=== PATIENT | male | born 1960 | race African-American/Black ===

== ENCOUNTER 2017-11-14 01:23 | Inpatient (IN) | payer OTHER ==
[2017-11-14 02:00] VITALS: BMI 27.1
--- NOTE | 2017-11-14 02:34 | PDOC ---
History of Present Illness - History of Present Illness Initial Comments: 11/14/17 02:52 Nikolai Mistry is a 56yo man with a PMH of head/neck cancer, currently undergoing radiation treatment, chronic respiratory failure s/p trach, dysarthria, dysphagia, chronic anemia, HTN who [facility]. Mr Mistry reports that he was sleeping when his nose bleed started. He has had frequent nose bleeds about once per month since starting radiation therapy, but they usually stop on their own. He was previously seen in another hospital ED for a nosebleed, but he says that time the blood was also coming from his mouth and required intervention. He denies any use of blood thinners and has not had any other unusual bleeding - he denies any hematuria, melena or hematochezia, hemoptysis, or unusual bruising. He gets all of his nutrition via G-tube and says that he has not had any difficulty taking in a normal amount recently. He has not had any changes in his diet, and has not had any recent diarrhea or change in bowel habits. <Kari Mullins - Last Filed: 11/14/17 06:50> <Marley Martinez - Last Filed: 11/14/17 06:59> - General Chief Complaint: Nasal Bleeding Stated Complaint: EPISTAXIS Time Seen by Provider: 11/14/17 02:29 Past History - Past Medical History Anemia: Yes Cancer: Yes COPD: No HTN: Yes Other medical history: chronic resp failure, Acute Kidney Failure, Dysarthria, Dysphagia, Dysphoni - Suicide/Smoking/Psychosocial Hx Smoking History: Unknown if ever smoked Hx Alcohol Use: No Drug/Substance Use Hx: No <Kari Mullins - Last Filed: 11/14/17 06:50> <Marley Martinez - Last Filed: 11/14/17 06:59> - Past Medical History Allergies/Adverse Reactions: Allergies Allergy/AdvReac Type Severity Reaction Status Date / Time No Known Allergies Allergy Verified 11/14/17 02:58 Home Medications: Ambulatory Orders Albuterol 2.5/Ipratropium 0.5 [Duoneb -] 1 amp NEB QID 11/14/17 Amlodipine Besylate [Norvasc -] 10 mg GT DAILY 11/14/17 Fluticasone Propionate 9.9 ml NS DAILY 11/14/17 Gabapentin 300 mg GT TID 11/14/17 Magnesium Oxide 400 mg GT DAILY 11/14/17 Review of Systems - Review of Systems Comments:: General: No fevers, no chills, no weight or appetite change, no malaise HEENT: No changes in vision, no changes in hearing. +h/o CA, +frequent nosebleeds, +radiation therapy to head and neck CV: No chest pain, no palpitations, no LE edema Pulm: h/o chronic respiratory failure s/p trach. No recent breathing difficulty GI: No nausea or vomiting, no change in bowel habits, no melena, no hematochezia : No frequency, no urgency, no dysuria, no hematuria Musc: No back pain, no joint swelling, no recent injury Skin: No rash, no lesions, no erythema Endo: No excessive thirst, no heat/cold intolerance Heme: No unusual bruising, no swollen glands Neuro: No syncope, no numbness/tingling, no focal weakness Vasc: No claudication Psych: No recent change in mood, no SI or HI <Kari Mullins - Last Filed: 11/14/17 06:50> *Physical Exam - Vital Signs Last Vital Signs Temp Pulse Resp BP Pulse Ox 98.9 F 119 H 19 123/95 99 11/14/17 01:30 11/14/17 01:30 11/14/17 01:30 11/14/17 01:30 11/14/17 01:30 - Physical Exam Comments: General: Comfortable, no acute distress HEENT: PERRL, EOMI, MMM. Dried blood noted in b/l nares and beneath nose, no active bleeding. Trach in place. Cards: RRR, no murmur appreciated Pulm: Comfortable on room air, clear to auscultation bilaterally Abd: Soft, nontender, nondistended. G-tube in place. Ext: Atraumatic. No LE edema. ROM intact. Strength 5/5 and equal bilaterally Vasc: Extremities WWP. Palpable radial and pedal pulses bilaterally Neuro: A&Ox3, CN grossly intact, normal speech, motor/sensory grossly intact and symmetric <Kari Mullins - Last Filed: 11/14/17 06:50> - Vital Signs Last Vital Signs Temp Pulse Resp BP Pulse Ox 98.9 F 119 H 19 123/95 99 11/14/17 01:30 11/14/17 01:30 11/14/17 01:30 11/14/17 01:30 11/14/17 01:30 <Marley Martinez - Last Filed: 11/14/17 06:59> ED Treatment Course - LABORATORY CBC & Chemistry Diagram: 11/14/17 03:48 11/14/17 03:48 <Kari Mullins - Last Filed: 11/14/17 06:50> - LABORATORY CBC & Chemistry Diagram: 11/14/17 03:48 11/14/17 03:48 - ADDITIONAL ORDERS Additional order review: Laboratory Results 11/14/17 11/14/17 11/14/17 06:23 06:06 03:48 PT with INR INR PTT (Actin FS) Sodium 139 Potassium 5.0 Chloride 105 Carbon Dioxide 28 Anion Gap 6 L BUN 30 H Creatinine 1.4 H Creat Clearance w eGFR 52.24 Random Glucose 121 H Calcium 8.9 Total Bilirubin 0.4 AST 25 ALT 28 Alkaline Phosphatase 98 Total Protein 7.8 Albumin 2.6 L Blood Type O POSITIVE O POSITIVE Antibody Screen Negative Crossmatch See Detail 11/14/17 03:48 PT with INR 13.30 H INR 1.18 H PTT (Actin FS) 32.8 Sodium Potassium Chloride Carbon Dioxide Anion Gap BUN Creatinine Creat Clearance w eGFR Random Glucose Calcium Total Bilirubin AST ALT Alkaline Phosphatase Total Protein Albumin Blood Type Antibody Screen Crossmatch 11/14/17 03:48 RBC 3.42 L MCV 77.0 L MCHC 32.9 RDW 16.8 H MPV 9.3 - RADIOLOGY Radiology Studies Ordered: Category Date Time Status CHEST X-RAY PORTABLE* [RAD] Stat Radiology 11/14/17 05:57 Ordered - Medications Given in the ED: ED Medications Discontinued Medications Generic Name Dose Route Start Last Admin Trade Name Freq PRN Reason Stop Dose Admin Sodium Chloride 1,000 ml 11/14/17 02:50 11/14/17 04:24 Normal Saline - IV 11/14/17 02:51 1,000 ml ONCE ONE Administration <Marley Martinez - Last Filed: 11/14/17 06:59> Medical Decision Making - Medical Decision Making 11/14/17 02:56 Nikolai Mistry is a 56yo man with a PMH of head/neck cancer, chronic respiratory failure s/p trach, HTN, chronic anemia who presents from a [facility] with epistaxis. The bleeding had resolved while waiting to be seen. - No current bleeding, so no action required for epistaxis - Tachycardic to 119 on arrival. Will give 1L bolus NS and recheck vitals - CBC, CMP, coags ordered to evaluate cause of bleeding; no labs available for baseline. - Per patient, no current use of anticoagulants. 11/14/17 06:13 - At approximately 05:00, Mr Mistry began experiencing profuse bleeding from the nose and mouth consistent with a posterior epistaxis. RhinoRocket packing was placed in the bilateral nares with continued intermittent bleeding via the mouth - Mr Mistry became hypotensive to SBP 83 and tachycardic to 120. 2u RBC's were ordered by emergency release for acute blood loss anemia as well as 1L normal saline - A triple lumen catheter was placed in the right femoral vein by Dr Martinez - ENT was paged for continued posterior bleeding - Medicine was contacted for ICU admission 11/14/17 06:52 - Discussed with ENT. Mr Mistry receives his cancer treatments at [facility]. ENT recommended transfer to an academic center where he receives his care as the bleeding could be related to his tumor. - Plan for transfer to [facility] Seen and discussed with Dr Martinez. <Kari Mullins - Last Filed: 11/14/17 06:50> *DC/Admit/Observation/Transfer - Discharge Dispostion Decision to Admit order: Yes <Kari Mullins - Last Filed: 11/14/17 06:50> - Discharge Dispostion Decision to Admit order: No - Transfer to Acute Care Facility Receiving [facility]: [facility]. <Marley Martinez - Last Filed: 11/14/17 06:59> Diagnosis at time of Disposition: Frequent epistaxis, Acute posterior epistaxis, Acute on chronic blood loss anemia - Discharge Dispostion Disposition: TRANSFER ACUTE CARE/OTHER HOSP Condition at time of disposition: Critical - Referrals Referrals: Jorge Luis Lomas MD [Primary Care Provider] - - Patient Instructions Printed Discharge Instructions: Nosebleeds (Alternative Therapy), DI for Nosebleed - Post Discharge Activity
--- NOTE | 2017-11-14 02:44 | PDOC ---
Attending Attestation - Resident Resident Name: SusannaKari - ED Attending Attestation I have performed the following: I have examined & evaluated the patient, The case was reviewed & discussed with the resident, I agree w/resident's findings & plan - HPI HPI: 11/14/17 03:39 The patient is a 56 year old male, with a significant past medical history of frequent nose bleeds, head and neck cancer (undergoing radiation), chronic respiratory failure s/p trach, dysarthria, dysphagia, chronic anemia, HTN, who presents to the emergency department via EMS from a [facility] with, a nose bleed. As per patient, he was sleeping when his nose began to bleed. Since the patient began his radiation he has been experiencing a nosebleed approximately once a month. This time he reports was different from others because he was bleeding from his mouth. He denies any recent fevers, chills, headache or dizziness. He denies any recent diarrhea or constipation. He denies any recent chest pain or shortness of breath. He denies any recent dysuria, frequency, urgency or hematuria. Allergies: NKA Past surgical history: None reported. Primary Care Physician: Dr. Jorge Luis Lomas - Physicial Exam PE: GENERAL: Afebrile. Awake, alert, and fully oriented, in no acute distress HEAD: No signs of trauma EYES: PERRLA, EOMI, sclera anicteric, conjunctiva clear +ENT: 6.[address] Swollen, edematous tongue filling oral cavity, and protruding tongue through teeth and lips. NECK: Normal ROM, supple, no lymphadenopathy, JVD, or masses LUNGS: Breathing easily. Breath sounds equal, clear to auscultation bilaterally. No wheezes, and no crackles HEART: Regular rate and rhythm, normal S1 and S2, no murmurs, rubs or gallops +ABDOMEN: PEG tube in place. Soft, nontender. No guarding, no rebound. No masses EXTREMITIES: Normal range of motion, no edema. No clubbing or cyanosis. No cords, erythema, or tenderness NEUROLOGICAL: ANO x3. Cranial nerves II through XII grossly intact. Normal speech, normal gait SKIN: Warm, Dry, normal turgor, no rashes or lesions noted. <Paras Daniels - Last Filed: 11/14/17 06:16> - Physicial Exam PE: 11/14/17 06:02 - Medical Decision Making 11/14/17 06:10 11/14/17 06:02 Pt has a 6.0 non-cuffed trach collar in place. His tongue is swollen likely secondary to meds and radiation. Pt is FULL code and he was sent from the [place] for brisk nosebleed. In the ER pt is hemodynamically stable with no bleeding. Pt is A+Ox3, however no-verbal; he communicates by writing. Pt began sudden brisk bleeding in the ER around 5:20AM. Blood dripping from nares as well as mouth. Likely posterior nosebleed. Posterior rhino rocket placed in the right nare and that stemmed the bleeding for a bit. Left rhino rocked was being placed when pt slumped forward and stopped breathing. Rhino rocket removed and ppt was repositioned in bed. He began breathing again. Pt tracheostomy inner tube was replaced, as pt had previously removed it, and respiratory was called to suction the tracheostomy tube. I placed an inguinal central line in right femoral vein, while Onegative uncrossmatched blood was given through pt's left arm peripheral IV. Line successfully placed and IV saline was run through it. Pt still with slow drip of blood into his posterior pharynx from the left nare. A second posterior rhino rocket was placed in the left nare. BP went up to 135 systolic from 81 systolic. Type and Crossmatch samples were sent to blood bank and they will be sending up type specific blood for transfusion. 11/14/17 06:10 Resident spoke to our ENT Dr. 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 11/14/17 06:59 Dr. Hdez ENT [facility] accepted the patient <Marley Martinez - Last Filed: 11/14/17 07:01> Attestations - Attestations 11/14/17 03:40 Documentation prepared by Paras Daniels, acting as medical physics professor for Marley Martinez MD. <Paras Daniels - Last Filed: 11/14/17 06:16>
[2017-11-14] MEDS ORDERED: SODIUM CHLORIDE 0.9% 500 ML INFUS.BAG IV ONE (02:50)
[2017-11-14 03:54] LABS: HEMATOCRIT 26.3 % (35.4-49); HEMOGLOBIN 8.7 GM/dL (11.7-16.9); MCH 25.3 pg (25.7-33.7); MCHC 32.9 g/dl (32.0-35.9); MEAN PLT VOLUME 9.3 fl (7.5-11.1); PLATELET COUNT 352 K/MM3 (134-434); RBC 3.42 M/mm3 (4.00-5.60); RDW 16.8 % (11.9-15.9); WHITE BLOOD COUNT 6.2 K/mm3 (4.0-10.0)
[2017-11-14 04:08] LABS: INR 1.18 (0.82-1.09); PROTHROMBIN TIME (PATIENT) 13.3 SEC (9.7-13.0)
[2017-11-14 04:10] LABS: ACTIVATED PTT 32.8 SECONDS (25.2-36.5)
[2017-11-14 04:17] LABS: ALBUMIN 2.6 g/dl (3.4-5.0); ANION GAP 6 (8-16); BLOOD UREA NITROGEN 30 mg/dL (7-18); CALCIUM 8.9 mg/dL (8.5-10.1); CHLORIDE 105 mmol/L (98-107); CO2 28 mmol/L (21-32); CREATININE 1.4 mg/dL (0.7-1.3); GLUCOSE,RANDOM 121 mg/dL (74-106); SGOT/AST 25 U/L (15-37); SGPT/ALT 28 U/L (12-78); SODIUM 139 mmol/L (136-145)
[2017-11-14 04:19] LABS: ALK PHOS 98 U/L (45-117); BILIRUBIN,TOTAL 0.4 mg/dL (0.2-1.0); TOT PROT 7.8 g/dl (6.4-8.2)
[2017-11-14] MEDS ORDERED: morphine CARPU-JECT 2 MG/1 ML DISP.SYRIN IVPUSH ONE (06:32)
[2017-11-14] MEDS ORDERED: ceFAZolin SODIUM 1 GM VIAL ONE (06:46)
[2017-11-14] MEDS ORDERED: MORPHINE SULFATE 10 MG/1 ML *VIAL ONE (06:48)
[2017-11-14] MEDS ORDERED: HEPARIN NA (PORCINE) 5,000 UNITS/ML 1ML VIAL ONE (06:53)
[2017-11-14 07:28] VITALS: TEMP 98.5
--- NOTE | 2017-11-14 07:31 | PDOC ---
*Physical Exam - Vital Signs Last Vital Signs Temp Pulse Resp BP Pulse Ox 98.5 F 110 H 19 126/78 99 11/14/17 07:22 11/14/17 07:22 11/14/17 07:22 11/14/17 07:22 11/14/17 01:30 ED Treatment Course - LABORATORY CBC & Chemistry Diagram: 11/14/17 03:48 11/14/17 03:48 - ADDITIONAL ORDERS Additional order review: Laboratory Results 11/14/17 11/14/17 11/14/17 06:23 06:06 03:48 PT with INR INR PTT (Actin FS) Sodium 139 Potassium 5.0 Chloride 105 Carbon Dioxide 28 Anion Gap 6 L BUN 30 H Creatinine 1.4 H Creat Clearance w eGFR 52.24 Random Glucose 121 H Calcium 8.9 Total Bilirubin 0.4 AST 25 ALT 28 Alkaline Phosphatase 98 Total Protein 7.8 Albumin 2.6 L Blood Type O POSITIVE O POSITIVE Antibody Screen Negative Crossmatch See Detail 11/14/17 03:48 PT with INR 13.30 H INR 1.18 H PTT (Actin FS) 32.8 Sodium Potassium Chloride Carbon Dioxide Anion Gap BUN Creatinine Creat Clearance w eGFR Random Glucose Calcium Total Bilirubin AST ALT Alkaline Phosphatase Total Protein Albumin Blood Type Antibody Screen Crossmatch 11/14/17 03:48 RBC 3.42 L MCV 77.0 L MCHC 32.9 RDW 16.8 H MPV 9.3 - Medications Given in the ED: ED Medications Discontinued Medications Generic Name Dose Route Start Last Admin Trade Name Freq PRN Reason Stop Dose Admin Sodium Chloride 1,000 ml 11/14/17 02:50 11/14/17 04:24 Normal Saline - IV 11/14/17 02:51 1,000 ml ONCE ONE Administration Medical Decision Making - Medical Decision Making Signed out by Dr. Mullins. Awaiting transfer to [facility] which was initiated by Dr. Mullins and Dr. Martinez. Will assess status of transfer and control of bleeding. 11/14/17 07:27 Pt stable, awaiting transfer. Pain and comfort controlled. 11/14/17 07:30 Pt being transferred via EMS. 11/14/17 07:55 *DC/Admit/Observation/Transfer Diagnosis at time of Disposition: Acute posterior epistaxis, Acute on chronic blood loss anemia, Frequent epistaxis - Discharge Dispostion Disposition: TRANSFER ACUTE CARE/OTHER HOSP Condition at time of disposition: Critical Decision to Admit order: No - Referrals - Patient Instructions - Post Discharge Activity
[2017-11-14 07:58] VITALS: BP 98/68; PULSE 104
[2017-11-14 09:56] LABS: BASO % 0.4 % (0-2.0); EOS % 0.6 % (0-4.5); HEMATOCRIT 24.9 % (35.4-49); LYMPH % 17.4 % (8-40); MCH 25.3 pg (25.7-33.7); MCHC 32.2 g/dl (32.0-35.9); MEAN CELL VOLUME 78.4 fl (80-96); MEAN PLT VOLUME 10.1 fl (7.5-11.1); NEUT % 70.6 % (42.8-82.8); PLATELET COUNT 328 K/MM3 (134-434); RBC 3.17 M/mm3 (4.00-5.60); WHITE BLOOD COUNT 7.2 K/mm3 (4.0-10.0)
--- NOTE | 2017-11-14 11:31 | EKG ---
Test Reason : Blood Pressure : / mmHG Vent. Rate : 113 BPM Atrial Rate : 113 BPM P-R Int : 120 ms QRS Dur : 074 ms QT Int : 322 ms P-R-T Axes : 074 057 048 degrees QTc Int : 441 ms SINUS TACHYCARDIA WITH OCCASIONAL PREMATURE VENTRICULAR COMPLEXES OTHERWISE NORMAL ECG NO PREVIOUS ECGS AVAILABLE Confirmed by EMY COHEN, EVERT ([id number]) on 11/14/2017 11:30:56 AM Referred By: Confirmed By:EVERT QUEVEDO MD
== END 2017-11-14 08:00 | disposition short-term general hospital (02) | DRG 147 ==
LOC: EDSEX 01:23 → JER 01:23 → JERBED 06:37
PROVIDERS: ADMIT Internal Medicine; ATTEND Family Medicine
PROC: 2Y41X5Z Packing of Nasal Region using Packing Material (ICD-10-PCS; principal; 2017-11-14)
DX: C76.0 Malignant neoplasm of head, face and neck (principal); D62 Acute posthemorrhagic anemia; J95.03 Malfunction of tracheostomy stoma; J96.10 Chronic respiratory failure, unspecified whether with hypoxia or hypercapnia; R04.0 Epistaxis; I10 Essential (primary) hypertension
CPT/HCPCS: 36415; 36430; 36511; 71045-TC-FY; 80053; 85025; 85027; 85610; 85730; 86850; 86900; 86901; 86922; 93005; 93010; 99284-25; P9038; P9058